=== PATIENT | female | born 1960 | race Caucasian/White ===

== ENCOUNTER 2017-10-28 05:02 | Inpatient (IN) | payer OTHER ==
[~2017-10-28 05:02] MED LIST: Buffered Lidocaine 0.9% SYRIN* 5 ML/SYR SYRINGE INTRADERM ONE
[2017-10-28] MEDS ORDERED: ceFAZolin 2 GM (*##) 2 GM/100 ML BAG USE CEFA2SOL IVPB ONE (07:36)
[2017-10-28] MEDS ORDERED: Clindamycin 900 MG IVPREMIX(* 900 MG/50 ML SDV IV ONE (07:36)
[2017-10-28] MEDS ORDERED: Buffered Lidocaine 0.9% SYRIN* 5 ML/SYR SYRINGE ONE (07:36)
[2017-10-28] MEDS ORDERED: ceFAZolin 1 GM in Dextrose (*) 1 GM/50 ML BAG IVPB ONE (07:36)
[2017-10-28] MEDS ORDERED: Heparin VIAL(*) 5000 UNITS/ML VIAL (FIVE THOUSAND) ONE (07:39)
[2017-10-28] MEDS ORDERED: fentaNYL* 50 MCG/ML 2 ML VIAL (100 MCG VIAL) ONE ×2 (08:33→11:29)
[2017-10-28] MEDS ORDERED: Midazolam* 1 MG/ML 2 ML VIAL (2 MG) ONE (08:33)
[2017-10-28] MEDS ORDERED: Methylene Blue 0.5 %* 50 MG/10 ML AMP IV ONE (09:04)
[2017-10-28] MEDS ORDERED: Bupivacaine 0.25% SDV* 30 ML ONE (09:04)
[2017-10-28] MEDS ORDERED: Lidocaine 2% PF * 5 ML VIAL ONE (10:17)
[2017-10-28] MEDS ORDERED: Ondansetron INJ* 2 MG/ML VIAL ONE (10:17)
[2017-10-28] MEDS ORDERED: EPHEDrine (Pressors)* 50 MG/ML VIAL ONE (10:17)
[2017-10-28] MEDS ORDERED: Succinylcholine* 20 MG/ML 10 ML VIAL ONE (10:17)
[2017-10-28] MEDS ORDERED: Dexamethasone IV* 4 MG/ML 1 ML (4 MG) ONE (10:17)
[2017-10-28] MEDS ORDERED: Propofol* 10 MG/ML 20 ML BTL IV PUSH ONE (10:17)
[2017-10-28] MEDS ORDERED: Cisatracurium* 2 MG/ML MDV 5 ML ONE (10:36)
[2017-10-28] MEDS ORDERED: PROCHLORPERAZINE INJ 5 MG/ML 2 ML VIAL IV PRN (10:56)
[2017-10-28] MEDS ORDERED: Ketorolac INJ* 30 MG/ML 1 ML VIAL IV PRN (10:56)
[2017-10-28] MEDS ORDERED: HYDROmorphone INJ* 1 MG/ML CARPUJECT SYRINGE IV PRN (10:56)
[2017-10-28] MEDS ORDERED: Naloxone* 0.4 MG/ML 1 ML VIAL IV PRN (10:56)
[2017-10-28] MEDS ORDERED: fentaNYL* 50 MCG/ML 2 ML VIAL (100 MCG VIAL) IV PRN (10:56)
--- NOTE | 2017-10-28 13:16 | OP ---
Operative Report - Blank - Operative Report Date of Operation: 10/28/17 Note: Preop Dx: Obesity and Cholelithiasis Post Dx: Obesity and Cholelithiasis Procedure: Laparoscopic cholecystectomy and Laparoscopic Martinez-en-Y Gastric Bypass Surgeon: Dr. Horn Assist: EARL Saenz Anesthesia: GET Fluids: 1700 ml LR EBL: less than 50 cc Specimen: Gallbaldder Drains: None Findings: see dictated operative note
[2017-10-28] MEDS ORDERED: hydrALAZINE IV* 20 MG/ML VIAL ONE (13:22)
[2017-10-28] MEDS ORDERED: Acetaminophen ADULT LIQ* 650 MG/20.3 ML UDC PO PRN (13:35)
[2017-10-28] MEDS ORDERED: HYDROmorphone INJ* 2 MG/ML CARPUJECT SYRINGE IV PRN ×2 (13:35)
[2017-10-28] MEDS ORDERED: Ondansetron INJ* 2 MG/ML VIAL IV PRN (13:35)
[2017-10-28] MEDS ORDERED: HYDROcodone/ACET. 7.5/325 LIQ* 15 ML UDC PO PRN (13:35)
[2017-10-28] MEDS ORDERED: PROCHLORPERAZINE INJ 5 MG/ML 2 ML VIAL ONE (13:40)
[2017-10-28] MEDS ORDERED: Scopolamine 1.5 mg* PATCH ONE (13:40)
[2017-10-28] MEDS ORDERED: Metoclopramide IV* 5 MG/ML 2 ML VIAL ONE (14:35)
[2017-10-28] MEDS ORDERED: Ketorolac INJ* 30 MG/ML 1 ML VIAL ONE (14:48)
[2017-10-28] MEDS: Heparin VIAL(*) 5000 UNITS/ML VIAL (FIVE THOUSAND) SUBCUT SCH ×2 (16:30→21:32)
[2017-10-28] MEDS: Metoprolol Succinate XL TAB* 50 MG PO SCH (19:32)
[2017-10-28] MEDS: Ketorolac INJ* 30 MG/ML 1 ML VIAL IV PRN (20:09)
[2017-10-28] MEDS: Famotidine IV* 10 MG/ML 2 ML (20 mg) IV SLOW PU SCH (21:27)
[2017-10-29] MEDS: Heparin VIAL(*) 5000 UNITS/ML VIAL (FIVE THOUSAND) SUBCUT SCH ×3 (06:11→21:52)
--- NOTE | 2017-10-29 07:47 | PN ---
Progress Note - Progress Note Date of Service: 10/29/17 SOAP: Subjective: Some nausea and pain last pm, relieved by meds. No c/o this am. Objective: Vital Signs Temp 98.9 F 10/29/17 03:52 Pulse 73 10/29/17 03:52 Resp 18 10/29/17 03:52 BP 121/46 10/29/17 03:52 Pulse Ox 96 10/29/17 03:52 Gen: NAD Abd: incis with dressings c/d/i; soft and min tender Intake & Output 10/28/17 10/29/17 10/29/17 18:59 06:59 18:59 Intake Total 2149 1974 Output Total 350 1750 Balance 1800 225 Weight 288 lb Intake: IV Fluids 2149 1974 ANCEF 3GMS 100 CLINDAMYCIN 900MG 50 LR 2000 1975 Oral 0 Output: Estrada 350 1750 Other: # Bowel Movements 0 Assessment: POD#1 s/p LRYGB/lap nitish. Doing well. Plan: Adv diet. PO meds. Amb. RD f/u. Home in am.
[2017-10-29] MEDS: Famotidine IV* 10 MG/ML 2 ML (20 mg) IV SLOW PU SCH ×2 (08:10→20:50)
[2017-10-29] MEDS: Ketorolac INJ* 30 MG/ML 1 ML VIAL IV PRN (08:10)
[2017-10-29] MEDS: Levothyroxine TAB* 50 MCG TAB PO SCH (08:13)
[2017-10-29] MEDS: D5W 1/2 NS KCl 20 Meq 1000 ML* 1,000 ML IV SCH ×2 (13:56→23:30)
[2017-10-29] MEDS: Metoprolol Succinate XL TAB* 50 MG PO SCH (17:51)
--- NOTE | 2017-10-29 22:20 | OP ---
CC: Daniel Bloom MD * DATE OF OPERATION: 10/28/17 - ROOM #353 DATE OF : 58 SURGEON: Peewee Horn MD POLICY ADVISOR: NICHOLAS Potter ANESTHESIOLOGIST: Emilie Florian MD ANESTHESIA: General endotracheal. PRE-OP DIAGNOSES: Class III obesity and gallstones. POST-OP DIAGNOSES: Class III obesity and gallstones. OPERATIVE PROCEDURE: Laparoscopic Martinez-en-Y gastric bypass and laparoscopic cholecystectomy. ESTIMATED BLOOD LOSS: Minimal. IV FLUIDS: Crystalloids. SPECIMEN: Gallbladder. DRAINS: None. COMPLICATIONS: None. COUNTS: Instrument, needle, and sponge count correct. DESCRIPTION OF PROCEDURE: The patient was brought to the operating room and placed on the table supine. Sequential compression devices were placed on both lower extremities. General anesthesia was administered. She was positioned and padded appropriately. Estrada catheter was placed. She was prepped and draped in the usual sterile fashion and received appropriate antibiotics. Time- out was performed. Local anesthetic was infiltrated into the skin and soft tissue prior to making each incision. After accessing the peritoneal cavity, a 12-mm trocar was placed and carbon dioxide was insufflated to a pressure of 15 mmHg. Under direct visualization, 12-mm trocars were placed in the supraumbilical midline and right upper quadrant. 5-mm trocars were placed in the right upper quadrant medially and left upper quadrant laterally. The inspection of the abdominal cavity revealed no adhesions. The gallbladder was inspected and noted to have numerous adhesions of omentum to it. The adhesions of omentum were taken down using the LigaSure device. Gallbladder fundus was grasped and retracted cephalad. The infundibulum was retracted laterally and inferiorly. The peritoneum investing the gallbladder was incised medially and laterally and blunt dissection was used to dissect out both the cystic duct and cystic artery. Critical view was obtained. Cystic duct was clipped and divided. Cystic artery was divided with LigaSure. The gallbladder was then freed from its attachments to the liver using cautery. The gallbladder was placed into retrieval bag and positioned across the liver to be retrieved later. A Trinh liver retractor was placed percutaneously in the subxiphoid position , used to elevate the left lobe of the liver. Gastric anatomy was notable for a hiatal hernia, which was containing a large epigastric fat pad that was easily reduced. The fundus in the stomach was freed from the left chase of the diaphragm and then perigastric dissection was undertaken on the lesser curvature at the second crossing vein, dividing the vessel with LigaSure. The dissection proceeded into the lesser sac and then using several firings of the Endo YINA stapler with dumont cartridge. Gastric pouch was created approximating 15 to 30 mL volume. Staple lines were noted to be intact and hemostatic. Next, the transverse colon was retracted superiorly along with the omentum. Omentum was moderately enlarged in size and divided with the LigaSure down the midline. Ligament of Treitz was then identified and the jejunum measured out for 40- 50 cm and then the loop was brought up and approximated to the gastric pouch and sutured to the gastric pouch with interrupted 2-0 silk. Next, the gastrojejunal anastomosis was performed with the Endo YINA stapler with a 30-mm dumont cartridge and the common enterotomy was closed over a 36 Czech gastric lavage tube. The loop was then divided to the left of the anastomosis with the Endo YINA stapler with dumont cartridge and then the gastrojejunal anastomosis was tested with methylene blue dye solution instilled through the orogastric tube. No leak was identified. The Martinez limb was then measured out 75 cm. A jejunojejunostomy was created with the Endo YINA stapler with a 60-mm dumont cartridge. The common enterotomy was run closed with 3-0 PDS. This was done in two layers with a single suture. The mesenteric defect at the jejunojejunostomy was closed with a running 3-0 silk. Inspection revealed hemostasis to be excellent. Orientation of the bowel was assured. The liver retractor was removed. The gallbladder specimen was retrieved. Ports removed under direct visualization and carbon dioxide was released. Incisions were closed with 4-0 Monocryl. Steri-Strips applied. The patient tolerated the procedure well, was extubated and transferred to the recovery room in stable condition. [id number]/[facility] #: [id number] [facility]
[2017-10-30] MEDS: Levothyroxine TAB* 50 MCG TAB PO SCH (05:36)
[2017-10-30] MEDS: Heparin VIAL(*) 5000 UNITS/ML VIAL (FIVE THOUSAND) SUBCUT SCH (05:37)
[2017-10-30] MEDS: D5W 1/2 NS KCl 20 Meq 1000 ML* 1,000 ML IV SCH (06:59)
[2017-10-30] MEDS: Famotidine IV* 10 MG/ML 2 ML (20 mg) IV SLOW PU SCH (09:40)
[2017-10-30 10:30] VITALS: BP 146/85
--- NOTE | 2017-10-30 23:19 | DS ---
CC: Dr. Daniel Bloom * DISCHARGE SUMMARY: DATE OF ADMISSION: 10/28/17 DATE OF DISCHARGE: 10/30/17 PATIENT OF: Dr. Peewee Horn * (DICTATED BY BY NICHOLAS POWELL) ADMISSION DIAGNOSIS: Clinically morbid obesity. DISCHARGE DIAGNOSIS: Clinically morbid obesity. ADMITTING PHYSICIAN: Dr. Horn. CONSULTATIONS: None. PROCEDURES: Laparoscopic Martinez-en-Y gastric bypass on 10/28/17. BRIEF MEDICAL HISTORY: Mrs. Núñez is a pleasant 56-year-old female, who has been seen at the [facility] in consideration for bariatric surgery. She reports that throughout most of her adult life, she has been suffering from excessive body weight. She had tried multiple regimen of diet and exercise, but unfortunately failed to maintain her weight loss. She was seen at [facility] and was found to be a good candidate for laparoscopic Martinez-en-Y gastric bypass to be performed on a later date. HOSPITAL COURSE: The patient was admitted via same-day surgery. She was taken to the operating room on 10/28/17 where she had a laparoscopic Martinez-en-Y gastric bypass by Dr. Horn. After recovery, the patient was transferred to the surgical floor for observation. She did extremely well with only mild incisional discomfort that was well tolerated using pain medicine as needed. She was ambulatory that night, out of bed, and in a stable condition. Her Estrada catheter was discontinued on the first night postop and the patient continued to ambulate. On the following morning, she started on a clear liquid bariatric diet that she tolerated well. She continued to improve and her exam prior to her discharge was relatively benign. Her incisions were clean and dry and her vitals were stable as well. The patient will be discharged to home today and will be seen at the [facility] next week for a followup. DISCHARGE MEDICATIONS: Include: 1. Calcium with vitamin D 1 tablet q.a.m. 2. Lortab Elixir 15 mL q. 6 hours as needed for pain. 3. Synthroid 50 mcg p.o. q. daily. 4. Metoprolol 50 mg p.o. q.daily. 5. Multivitamin 1 cap daily. 6. Sodium chloride ophthalmic solution and ointment apply to both eyes as instructed. PROBLEM LIST: Morbid obesity, status post laparoscopic Martinez-en-Y gastric bypass on 10/28/17. NICHOLAS POWELL [id number]/[facility] #: [id number] [facility]
== END 2017-10-30 10:45 | disposition home or self-care (01) | DRG 621 ==
LOC: AA 07:23 → SSU 15:26
PROVIDERS: ADMIT Surgery; ATTEND Surgery
PROC: 0FT44ZZ Resection of Gallbladder, Percutaneous Endoscopic Approach (ICD-10-PCS; 2017-10-28)
PROC: 0D164ZA Bypass Stomach to Jejunum, Percutaneous Endoscopic Approach (ICD-10-PCS; principal; 2017-10-28 09:30)
DX: E66.01 Morbid (severe) obesity due to excess calories (principal); E03.9 Hypothyroidism, unspecified; G47.33 Obstructive sleep apnea (adult) (pediatric); I10 Essential (primary) hypertension; R11.0 Nausea; K44.9 Diaphragmatic hernia without obstruction or gangrene; K80.80 Other cholelithiasis without obstruction; Z68.41 Body mass index [BMI] 40.0-44.9, adult; Z82.49 Family history of ischemic heart disease and other diseases of the circulatory system; Z80.42 Family history of malignant neoplasm of prostate; Z83.49 Family history of other endocrine, nutritional and metabolic diseases; Z82.61 Family history of arthritis; Z82.62 Family history of osteoporosis; Z72.89 Other problems related to lifestyle
CPT/HCPCS: 43644; 47562; 88304; 94760; A9270-GY; C1776; J0330; J0360; J0690; J0780; J1100; J1644; J1885; J2250; J2405; J2704; J2765; J3010